=== PATIENT | male | born 2000 | race African-American/Black ===

== ENCOUNTER 2019-02-10 09:10 | Emergency (ER) | payer OTHER, MEDICAID ==
[~2019-02-10] VITALS: Ht 193 cm; Wt 93.0 kg
[2019-02-10] MEDS ORDERED: KETOROLAC 30MG/ML VIAL IV STA (10:05)
[2019-02-10] MEDS ORDERED: DEXAMETHASONE 10 MG/ML VIAL IV ONE (10:15)
[2019-02-10] MEDS ORDERED: VANCOMYCIN 1 G PREMIX 200 ML IV ONE (10:15)
[2019-02-10] MEDS ORDERED: SODIUM CHLORIDE 0.9% 1000ML BAG (SEPSIS BOLUS) IV ONE (10:15)
[2019-02-10] MEDS ORDERED: CLINDAMYCIN 600 MG in DEXTROSE 5% WATER 50 ML IV ONE (10:15)
[2019-02-10 10:57] LABS: BASOPHILS % 0.3 % (0.0-2.0); EOSINOPHILS % 0.5 % (0.0-5.0); HEMATOCRIT. 53.2 % (42.0-52.0); HEMOGLOBIN. 18.1 g/dL (14.0-18.0); LYMPHOCYTES % 10.1 % (20.0-50.0); MEAN CORPUSCULAR HEMOGLOBIN 27.6 pg (28.0-32.0); MEAN CORPUSCULAR VOLUME 81.3 fL (80.0-94.0); MONOCYTES % 9.8 % (2.0-8.0); NEUTROPHILS % 79.3 % (40.0-76.0); PLATELET 168 x1000/uL (130-400); RED BLOOD CELL COUNT 6.55 mill/uL (4.7-6.1); RED CELL DISTRIBUTION WIDTH 13.8 % (11.6-14.6)
[2019-02-10 11:02] LABS: CHLORIDE 100 mEq/L (98-107)
[2019-02-10 11:05] LABS: INR 1.4; PROTHROMBIN TIME 13.9 sec (9.6-11.0)
[2019-02-10 11:25] LABS: CLARITY URINE CLOUDY (CLEAR); COLOR URINE DARK YELLOW (YELLOW); KETONES URINE TRACE (NEGATIVE); LEUKOCYTE ESTERASE URINE 1+ (NEGATIVE); NITRITE URINE NEGATIVE (NEGATIVE); OCCULT BLOOD URINE NEGATIVE (NEGATIVE); PROTEIN URINE TRACE (NEGATIVE); SPECIFIC GRAVITY URINE 1.024 (1.005-1.030)
[2019-02-10] MEDS ORDERED: [UNRECOGNIZED DRUG - OTHER] IV ONE (11:30)
[2019-02-10] MEDS ORDERED: CLINDAMYCIN IV ONE (11:30)
[2019-02-10] MEDS ORDERED: CLINDAMYCIN 600MG PREMIX 50 ML IV NR (11:30)
[2019-02-10 11:43] LABS: MONOTEST NEGATIVE (NEGATIVE)
[2019-02-10] MEDS ORDERED: IOHEXOL-300 100 ML BOTTLE ONE (12:29)
[2019-02-10 14:11] VITALS: BP 110/50
== END 2019-02-10 14:12 | disposition home or self-care (01) ==
LOC: ER 09:13
DX: R59.0 Localized enlarged lymph nodes (principal); J02.9 Acute pharyngitis, unspecified; N39.0 Urinary tract infection, site not specified
CPT/HCPCS: 36415; 70491; 71045; 80053; 81003; 83605; 84145; 85025; 85610; 86308; 87040; 87070; 87086; 87430; 93005; 96365; 96367; 96375; 99284; J1100; J3370; J3490; J7030; Q9967; J1885; J7060

== ENCOUNTER 2022-09-20 23:28 | Emergency (ER) | payer MEDICAID, OTHER ==
[~2022-09-20] VITALS: Ht 190.5 cm; Wt 78.3 kg
[2022-09-21 01:06] VITALS: BP 118/74
== END 2022-09-21 01:08 | disposition home or self-care (01) ==
LOC: ER 23:41
DX: H92.01 Otalgia, right ear (principal)
CPT/HCPCS: 99281